=== PATIENT | male | born 1970 | race Caucasian/White ===

== ENCOUNTER 2019-02-25 16:40 | Emergency (ER) | payer BC ==
[2019-02-25 16:56] VITALS: BP 135/83
--- NOTE | 2019-02-25 17:22 | ED ---
Respiratory - HPI Summary HPI Summary: 48 yr old male with the complaint of coughing. Onset of symptoms 6 weeks ago. The patient complains of coughing dark sputum now. He has sinus pressure and ear pressure now as well as post nasal drip. He denies CP. He denies SOB. He denies fever or chills. His symptoms are moderate. - History of Current Complaint Chief Complaint: UCRespiratory Stated Complaint: COUGH,RESPIRATORY Time Seen by Provider: 02/25/19 17:00 Pain Intensity: 0 - Allergy/Home Medications Allergies/Adverse Reactions: Allergies Allergy/AdvReac Type Severity Reaction Status Date / Time Penicillins Allergy Unknown Verified 02/25/19 16:53 Reaction Details Home Medications: Home Medications NK [No Home Medications Reported] 02/25/19 [History Confirmed 02/25/19] PMH/Surg Hx/FS Hx/Imm Hx - Surgical History Surgery Procedure, Year, and Place: L knee Infectious Disease History: No Infectious Disease History: Denies: Traveled Outside the [place] in Last 30 Days - Family History Known Family History: Positive: None - Social History Alcohol Use: Occasionally Substance Use Type: Reports: None Smoking Status (MU): Current Some Day Smoker Type: Cigars Amount Used/How Often: socially Review of Systems Constitutional: Negative Positive: Cough All Other Systems Reviewed And Are Negative: Yes Physical Exam Triage Information Reviewed: Yes Vital Signs On Initial Exam: Initial Vitals Temp Pulse Resp BP Pulse Ox 97.9 F 57 14 135/83 99 02/25/19 16:52 02/25/19 16:52 02/25/19 16:52 02/25/19 16:52 02/25/19 16:52 Vital Signs Reviewed: Yes Appearance: Positive: Well-Appearing, No Pain Distress Skin: Positive: Warm, Skin Color Reflects Adequate Perfusion Head/Face: Positive: Normal Head/Face Inspection Eyes: Positive: EOMI ENT: Positive: Normal ENT inspection, Nasal congestion, Nasal drainage, TMs normal, Sinus tenderness Neck: Positive: Nontender Respiratory/Lung Sounds: Positive: Clear to Auscultation, Breath Sounds Present Cardiovascular: Positive: RRR. Negative: Murmur Abdomen Description: Positive: Nontender. Negative: Distended Musculoskeletal: Positive: Strength/ROM Intact Neurological: Positive: Sensory/Motor Intact, Alert, Oriented to Person Place, Time, CN Intact II-III, Normal Gait, Speech Normal Psychiatric: Positive: Normal Diagnostics - Vital Signs Vital Signs Temp Pulse Resp BP Pulse Ox 02/25/19 16:52 97.9 F 57 14 135/83 99 - Laboratory Lab Statement: Any lab studies that have been ordered have been reviewed, and results considered in the medical decision making process. Disposition - Course Course Of Treatment: 48 yr old with sinusitis. Rx Biaxin. FU with PMD. - Diagnoses Provider Diagnoses: Sinusitis Discharge ED - Sign-Out/Discharge Documenting (check all that apply): Patient Departure All imaging exams completed and their final reports reviewed: Yes - Discharge Plan Condition: Good Disposition: HOME Patient Education Materials: Sinusitis (ED) Referrals: No Primary Care Phys,NOPCP [Primary Care Provider] - [facility] – [place], [place] [facility] [Outside] - 2 Days - Billing Disposition and Condition Condition: GOOD Disposition: Home
== END 2019-02-25 17:52 | disposition home or self-care (01) ==
LOC: UCCORT 16:40
DX: J32.9 Chronic sinusitis, unspecified (principal); R05 Cough; F17.290 Nicotine dependence, other tobacco product, uncomplicated
CPT/HCPCS: 71046; 99202; G0463